=== PATIENT | female | born 1975 | race Caucasian/White ===

== ENCOUNTER 2019-06-27 08:02 | Day surgery (SDC) | payer OTHER ==
[~2019-06-27] VITALS: Ht 157.5 cm; Wt 89.5 kg
[2019-06-27 08:56] VITALS: Ht 157.5 cm; Wt 89.5 kg
--- NOTE | 2019-06-27 09:46 | PREAC ---
Date/Time of Note Date/Time of Note DATE: 06/27/19 TIME: 09:45 Anesthesia Eval and Record Evaluation Time Pre-Procedure Interview DATE: 06/27/19 TIME: 09:45 Age 43 Sex female NPO: 8 hrs Preoperative diagnosis ABDOMINAL PAIN Planned procedure EGD COLON Past Medical History Past Medical History: Includes GI: Obesity Surgery & Anesthesia Issues No known issue Meds Anticoagulation: No Beta Farshad within 24 hr: No Reason Beta Farshad not given: Pt. not on B-Farshad Reported Medications [none] No Conflict Check 06/27/19 Meds reviewed: Yes Allergies Coded Allergies: No Known Allergy (Unverified , 06/27/19) Allergies Reviewed: Yes Labs/Studies Labs Reviewed: Reviewed by anesthesiologist test: Negative Pre-procedure Exam Airway: Adequate mouth opening, Adequate thyromental dist Mallampati: Mallampati II Teeth: Normal Lung: Normal Heart: Normal ASA Physical Status ASA physical status: 2 Emergency: None Planned Anesthetic General/MAC: MAC Planned Pain Management Parenteral pain med Pre-operative Attestations Prior to commencing anesthesia and surgery, the patient was re-evaluated, there was verification of: *The patient's identity *The results of appropriate recent lab work and preoperative vital signs *The above evaluation not changing prior to induction *Anesthetic plan, risk benefits, alternative and complications discussed with patient/family; questions answered; patient/family understands, accepts and wishes to proceed. EDGAR NORRIS Jun 27, 2019 09:46
[2019-06-27 09:53] VITALS: BP 152/79; PULSE 68; RESP 20
[2019-06-27] MEDS ORDERED: PROPOFOL 60 ML ONE (09:58)
[2019-06-27] MEDS ORDERED: LIDOCAINE 2% (SDV) 5 ML INJ ONE (09:59)
--- NOTE | 2019-06-27 10:43 | PAC ---
Date/Time of Note Date/Time of Note DATE: 06/27/19 TIME: 10:42 Post-Anesthesia Notes Post-Anesthesia Note Last documented vital signs Vital Signs Date Temp Pulse Resp B/P (MAP) Pulse Ox O2 O2 Flow FiO2 Time Delivery Rate 06/27/19 97.9 68 20 152/79 97 Room Air 1042 (103) Activity: WNL Respiratory function: WNL Cardiovascular function: WNL Mental status: Baseline Pain reasonably controlled: Yes Hydration appropriate: Yes Nausea/Vomiting absent: Yes EDGAR NORRIS Jun 27, 2019 10:43
[2019-06-27] MEDS ORDERED: LABETALOL HCL 20MG INJ IV PRN (11:00)
[2019-06-27] MEDS ORDERED: FENTAnyl 50 MCG/ML VIAL IV PRN ×2 (11:00)
[2019-06-27] MEDS ORDERED: ONDANSETRON 4 MG INJ IV PRN (11:00)
[2019-06-27] MEDS ORDERED: EPHEDrine 25 MG/5 ML SYG IV PRN (11:00)
[2019-06-27 11:08] VITALS: BP 137/78; RESP 15
== END 2019-06-27 16:25 | disposition home or self-care (01) ==
LOC: GIL 08:02
PROVIDERS: ATTEND Internal Medicine Gastroenterology
DX: R19.4 Change in bowel habit (principal); K64.8 Other hemorrhoids; K29.50 Unspecified chronic gastritis without bleeding
CPT/HCPCS: 43239; 45378; 84703; 88305; 88312; Z7610